=== PATIENT | male | born 1975 | race African-American/Black ===

== ENCOUNTER 2024-06-16 19:00 | Emergency (ER) | payer OTHER, SELFPAY ==
--- OUTSIDE RECORDS SUMMARY | 2024-06-16 19:08 | XMS_ITS | Clinical Summary ---
Author Organization [facility] [address] Address [address] [place] [address] Phone Care Team Providers Care Vp Cardiovascular Service Line Name Role Phone Kendra Grimaldo NP Primary Care Provider [phone] Allergies No known active allergies Medications ibuprofen (ADVIL,MOTRIN) 800 mg tablet TAKE ONE TABLET BY MOUTH THREE TIMES DAILY 90 0 01/01/20 16 Active Additional Information Patient not taking.Reported on 04/16/2024 emtricitabine-teno fovir disoproxil fumerate (TRUVADA) 200-300 mg per tablet Take 1 tablet by mouth daily Active DULoxetine DR (CYMBALTA) 60 mg capsule Take 1 capsule (60 mg total) by mouth daily 03/16/19 23 Active mirtazapine (REMERON) 30 mg tablet Take 1 tablet (30 mg total) by mouth nightly at bedtime. 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 Acute constipation 04/16/2024 Encounter for screening colonoscopy 04/28/2022 Overview (04/28/2022): Added automatically from request for surgery [id number] Alcohol withdrawal syndrome without complication 10/10/2017 Encounters Date Type Department Care Team Description 05/01/2024 Telephone [facility] Gastroenterology at [address] [place] [address] Lucinda Mccain 04/16/2024 8:15 AM BILLET DRILLER Office Visit [facility] Gastroenterology at [address], [place] [address] Ethan Wynne NP Proctocolitis (Primary Dx); Acute constipation; Tubulovillous adenoma 04/16/2024 Telephone [facility] Gastroenterology at [address], [place] [address] Radha Jose LPN 04/16/2024 Telephone [facility] Gastroenterology at [address] [address] Ethan Wynne NP 04/14/2024 6:12 AM BILLET DRILLER - 04/14/2024 11:25 AM BILLET DRILLER Emergency [facility] Emergency Department [address] [place] [address] Jonathan Heck MD Proctocolitis (Primary Dx) Discharge Disposition: Discharge to home or self care from Last 3 Months Surgical History Surgery Date Site/Laterality Comments COLONOSCOPY 05/24/2022 Social History Tobacco Use Types Packs/Day Years Used Date Smoking Tobacco: Former Cigarettes Q uit: 2018 Smokeless Tobacco: Never Alcohol Use Standard Drinks/Week Comments Yes 6 (1 standard drink = 0.6 oz pur e alcohol) 1/5 and 6 beers daily AUDIT-C Answer Date Recorded Q1: How often do you have a drink containing alc ohol? Never 04/16/2024 Average Number of Drinks Not on file 025 Frequency of Binge Drinking Not on file 05/2024 Personal Safety Answer Date Recorded Have you ever been in or are you currently in a harmful physical or emotional relationship or is someone making you feel afraid or unsafe? Denies 04/14/2024 Sex and Gender Information Value Date Recorded Sex Assigned at Not on file Legal Sex Male 7:40 PM BILLET DRILLER Gender Identity Not on file Sexual Orientation Not on file Obstetrics History Last Filed Vital Signs Vital Sign Reading Time Taken Comments Blood Pressure 134/81 04/16/2024 10:05 AM BILLET DRILLER Pulse 89 04/16/2024 10:05 AM BILLET DRILLER Temperature 36.1 C (97 F) 04/14/2024 6:20 AM BILLET DRILLER Respiratory Rate 16 04/14/2024 11:1 5 AM BILLET DRILLER Oxygen Saturation 96% 04/16/2024 10: 05 AM BILLET DRILLER Inhaled Oxygen Concentration - - Weight 68.8 kg (151 lb 11.2 oz) 025 10:05 AM BILLET DRILLER Height 177.8 cm (5' 10 ) 04/16/2024 10: 05 AM BILLET DRILLER Body Mass Index 21.77 04/16/2024 10:05 AM BILLET DRILLER Plan of Treatment Upcoming Encounters Date Type Department Care Team (Late st Contact Info) Description 07/02/2024 12:30 PM CDT Hospital Encounter [address] [address] Chino Avila MD [address] [place] [address] DR LAZARO [address] [place] [address] 07/02/2024 12:30 PM CDT - 07/02/2024 1:00 PM CDT Surgery [address] [address] Chino Avila MD [address] [place] [address] DR LAZARO [address] [place] [address] COLONOSCOPY Scheduled Procedures Name Priority Associated Diagnoses Date/Ti me COLONOSCOPY Proctocolitis 07/02/2024 12:30 PM CDT Health Maintenance Due Date Last Done Comments Depression Screening 1975 Hepatitis C Screening 1975 Prostate Cancer Screening-PSA 1975 DTaP/Tdap/Td Vaccine (1 - Tdap) 07/07/1986 Hepatitis B Screening 07/07/1993 Regular Well Visit/Exam 18-64 07/07/1993 Influenza Vaccine (#1) 2023 3, 11/05/2020, 11/05/2020 Colon Cancer Screening-Colonoscopy 05/24/2032 05/24/2022 Pneumococcal vaccine <65 Aged Out No longer eligible based on patient's age to complete this topic Procedures Procedure Name Priority Date/Time Associated Diagnosis Comments URINALYSIS, MICROSCOPIC ONLY STAT 04/14/2024 10:07 AM BILLET DRILLER URINALYSIS AND REFLEX TO MICROSCOPIC AND CULTURE STAT 04/14/2024 10:[address] ABDOMEN PELVIS W CONTRAST ED 04/14/2024 9:15 AM BILLET DRILLER EGFR STAT 04/14/2024 6:52 AM BILLET DRILLER MANUAL DIFFERENTIAL STAT 04/14/2024 6 :52 AM BILLET DRILLER CRP (ACUTE PHASE) Add-On 04/14/2024 6:5 2 AM BILLET DRILLER LIPASE STAT 04/14/2024 6:52 AM BILLET DRILLER SEPSIS LACTATE WITH REFLEX STAT 04/14/2024 6:52 AM BILLET DRILLER CBC WITH AUTO DIFFERENTIAL STAT 04/14/2024 6:52 AM BILLET DRILLER COMPREHENSIVE METABOLIC PANEL STAT 04/14/2024 6:52 AM BILLET DRILLER COLONOSCOPY 05/24/2022 9:16 AM CDT from Last 3 Months or Most Recently Relevant to Health Maintenance Results * (ABNORMAL) Urinalysis reflex to microscopic and culture Urine (04/14/2024 10:07 AM BILLET DRILLER) Color, ur Yellow Yellow Clarity, ur Clear Clear [facility] ([place]) Specific gravity, ur 1.010 1.003 - 1.030 [facility] ([place]) Comment:Confirmed by manual dipstick. pH, urine 7.0 [facility] ([place]) Comment: Interpretive Data U rine pH is affected by diet, medications, systemic acid-base disturbances, and renal tubular function. pH may affect urinary stone formation. For example, urine pH below 6.0 may help reduce the tendency for calcium phosphate stones and pH greater than 6.0 may reduce the tendency for uric acid stone formation. Source: [employer] Current Interpretive Data was last revised on 2017 Protein, ur ql 1+(A) Negative [facility] ([place]) Glucose, ur ql Negative Negative [facility] ([place]) Ketones, ur Negative Negative [facility] ([place]) Bilirubin, ur Negative Negative [facility] ([place]) Blood, ur Negative Negative [facility] ([place]) Urobilinogen, ur <2.0 <2.0 mg/dL [facility] ([place]) Nitrite, ur Negative Negative [facility] ([place]) Leukocyte esterase, ur Negative Negative [facility] ([place]) UA reflex comment Reflex to microscopic UA will be performed. [facility] ([place]) Urine 04/14/2024 10:0 7 AM BILLET DRILLER 04/14/2024 10:11 AM BILLET DRILLER us Jonathan Heck MD LAB MICROBIOLOGY - GENERAL O RDERABLES Final Result Performing Organization Address [facility] Co de Phone Number [facility] ([place]) [address] [facility] [address] [employer] [place] [address] * Urinalysis, microscopic only (04/14/2024 10:07 AM BILLET DRILLER) WBC, ur 0-5 0 - 5 /HPF RBC, ur 0-2 0 - 2 /HPF [facility] ([place]) Epithelial cells, squamous, ur 1-5 0 - 5 /HPF [facility] ([place]) Culture Reflex Comment Reflex conditions for urine culture (WBC >10) not met. [facility] ([place]) Urine 04/14/2024 10:0 7 AM BILLET DRILLER 04/14/2024 10:11 AM BILLET DRILLER Jonathan Heck MD LAB URINE ORDERABLES Final R esult Performing Organization Address City/[facility] Co de Phone Number [facility] ([place]) [address] [facility] [address] [employer] [place] [address] * CT Abdomen Pelvis W Contrast (04/14/2024 9:15 AM BILLET DRILLER) Anatomical Region Laterality Modality Body N/A Computed Tomogra phy 04/14/2024 9:44 AM BILLET DRILLER Narrative 04/14/2024 10:01 AM BILLET DRILLER EXAM DESCRIPTION: CT ABDOMEN PELVIS W CONTRAST REASON FOR STUDY: Abdominal pain, acute, nonlocalized Patient arrives for evaluation of constipation. Patient states that he has not had a regular bowel movement since last Monday. He has not tried any otc medications. Patient also reports nausea. TECHNIQUE: CT scan of the abdomen and pelvis performed with intravenous and without oral contrast using helical scanning technique with dynamic intravenous contrast injection. Reconstructed coronal and sagittal MPR images reviewed. All images stored on PACS. Automated exposure control was used as a dose optimization technique for this examination. CONTRAST TYPE/DOSE: 75mL of IOVERSOL 350 MG IODINE/ML INTRAVENOUS SYRINGE injected via intravenous COMPARISON: CT abdomen and pelvis 09/29/2021 FINDINGS: LOWER CHEST: No acute findings. LIVER: Normal. GALLBLADDER: Normal. SPLEEN: Normal. PANCREAS: Normal. ADRENALS: Normal. KIDNEYS/URINARY TRACT: Normal. GI: No bowel obstruction. Normal appendix. Large amount of right and transverse colonic stool. There is sigmoid colonic and rectal wall thickening with prominent perirectal vasculature and small perirectal lymph nodes. PERITONEUM: No free intraperitoneal air or free fluid. REPRODUCTIVE: Normal. VASCULATURE: No abdominal aortic aneurysm. MUSCULOSKELETAL: Old L1 and L2 compression fractures. Grade 1 anterolisthesis of L4 on L5. Disc space narrowing at L5-S1. OTHER: No other abnormality. IMPRESSION: Evidence of proctocolitis. The bowel wall would be better evaluated colonoscopically after acute symptoms have resolved. Large amount of right and transverse colonic stool in keeping with the history of constipation. THIS IS AN ELECTRONICALLY VERIFIED FINAL REPORT 04/14/2024 10:01 AM - Electronically signed by Abdiel Caballero M.D. JR: Report ID: [id number] Reading Location: [id number] Procedure Note Abdiel Caballero MD - 04/14/2024 EXAM DESCRIPTION: CT ABDOMEN PELVIS W CONTRAST REASON FOR STUDY: Abdominal pain, acute, nonlocalized Patient arrives for evaluation of constipation. Patient states that he hasnot had a regular bowel movement since last Monday. He has not tried any otc medications. Patient also reports nausea. TECHNIQUE: CT scan of the abdomen and pelvis performed with intravenousand without oral contrast using helical scanning technique with dynamic intravenous contrast injection. Reconstructed coronal and sagittal MPRimages reviewed. All images stored on PACS. Automated exposure control was used as a dose optimization technique forthis examination. CONTRAST TYPE/DOSE: 75mL of IOVERSOL 350 MG IODINE/ML INTRAVENOUSSYRINGE injected via intravenous COMPARISON: CT abdomen and pelvis 09/29/2021 FINDINGS: LOWER CHEST: No acute findings. LIVER: Normal. GALLBLADDER: Normal. SPLEEN: Normal. PANCREAS: Normal. ADRENALS: Normal. KIDNEYS/URINARY TRACT: Normal. GI: No bowel obstruction. Normal appendix. Large amount of right and transverse colonic stool. There is sigmoid colonic and rectal wallthickening with prominent perirectal vasculature and small perirectal lymph nodes. PERITONEUM: No free intraperitoneal air or free fluid. REPRODUCTIVE: Normal. VASCULATURE: No abdominal aortic aneurysm. MUSCULOSKELETAL: Old L1 and L2 compression fractures. Grade 1 anterolisthesis of L4 on L5. Disc space narrowing at L5-S1. OTHER: No other abnormality. IMPRESSION: Evidence of proctocolitis. The bowel wall would be better evaluated colonoscopically after acute symptoms have resolved. Large amount of right and transverse colonic stool in keeping with the history of constipation. THIS IS AN ELECTRONICALLY VERIFIED FINAL REPORT 04/14/2024 10:01 AM - Electronically signed by Abdiel Caballero M.D. JR: Report ID: [id number] Reading Location: [id number] Jonathan Heck MD IMG CT PROCEDURES Final Resu lt * Sepsis Lactate w/ Reflex (04/14/2024 6:52 AM BILLET DRILLER) Sepsis Lactate 1.2 0.7 - 2.0 mmol/L Blood 04/14/2024 6:52 AM BILLET DRILLER 04/14/2024 6:54 AM BILLET DRILLER Jonathan Heck MD LAB BLOOD ORDERABLES Final R esult Performing Organization Address City/[facility]/ZIP Co de Phone Number [facility] ([place]) 1 [facility] [employer] [place] [address] * eGFR (04/14/2024 6:52 AM BILLET DRILLER) eGFR >90 >=60 mL/min/1. 73 m2 Comment: Interpretive Data Reference Interval Normal >/= 90 mL/min/1.73m2 Mildly decreased* 60 - 89 mL/min/1.73m2 Mildly to moderately decreased 45 - 59 mL/min/1.73m2 Moderately to severely decreased 30 - 44 mL/min/1.73m2 Severely decreased 15 - 29 mL/min/1.73m2 Kidney Failure < 15 mL/min/1.73m2 *Relative to young adult level Estimated glomerular filtration rate is determined by the 2020 CKD-EPI equation recommended by the National Kidney Foundation (A Unifying Approach to GFR Estimation: Recommendations of the NKF-ASK Task Force on Reassessing the Inclusion of Race in Diagnosing Kidney Disease, JASN 2020). The CKD-EPI equation should not be used for patients with unstable renal function and has not been validated in children and those over 70. Current interpretive data was last reviewed 2020. Blood 04/14/2024 6:52 AM BILLET DRILLER 04/14/2024 6:54 AM BILLET DRILLER Jonathan Heck MD LAB BLOOD ORDERABLES Final R esult Performing Organization Address City/[facility]/ZIP Co de Phone Number [facility] ([place]) 1 [facility] [employer] [place] [address] * (ABNORMAL) CBC with auto differential (04/14/2024 6:52 AM BILLET DRILLER) Pathologist [facility] WBC 6.7 3.8 - 9.9 K/cumm Hgb 12.1(L) 13.0 - 17.5 g/dL [facility] ([place]) Hct 37.0(L) 38.9 - 50.3 % [facility] ([place]) Plt 286 150 - 400 K/cumm [facility] ([place]) MPV 8.5(L) 9.1 - 12.3 fL [facility] ([place]) RBC 5.06 4.30 - 5.80 M/cumm [facility] ([place]) MCV 73.1(L) 81.3 - 96.4 fL [facility] ([place]) MCH 23.9(L) 27.1 - 33.3 pg [facility] ([place]) MCHC 32.7 32.3 - 35.7 g/dL [facility] ([place]) RDW CV 13.4 11.1 - 14.9 % [facility] ([place]) RDW SD 34.8(L) 35.7 - 48.1 fL [facility] ([place]) NRBC abs 0.00 0.00 - 0.01 K/cumm [facility] ([place]) Blood 04/14/2024 6:52 AM BILLET DRILLER 04/14/2024 6:54 AM BILLET DRILLER Jonathan Heck MD LAB BLOOD ORDERABLES Final R esult [facility] ([place]) 1 [facility] Department of Laboratories [place] [id number] * (ABNORMAL) Manual Differential (04/14/2024 6:52 AM BILLET DRILLER) Differential Manual Cells Counted 100 [facility] ([place]) Neutrophil abs 3.4 1.5 - 6.5 K/cumm [facility] ([place]) Lymphocyte abs 1.8 0.8 - 3.3 K/cumm [facility] ([place]) Monocyte abs 0.9(H) 0.2 - 0.8 K/cumm [facility] ([place]) Eosinophil abs 0.3 0.0 - 0.5 K/cumm [facility] ([place]) Basophil abs 0.2(H) 0.0 - 0.1 K/cumm [facility] ([place]) Neutrophil pct 50.0 % [facility] ([place]) Comment: Interpretive Data Percent cell count reference ranges are not reported, since discordance with absolute values may lead to misinterpretation of CBC data. Current Interpretive Data was last revised on 2017. Lymphocyte pct 12.0 % [facility] ([place]) Comment: Interpretive Data Percent cell count reference ranges are not reported, since discordance with absolute values may lead to misinterpretation of CBC data. Current Interpretive Data was last revised on 2017. Monocyte pct 14.0 % [facility] ([place]) Comment: Interpretive Data Percent cell count reference ranges are not reported, since discordance with absolute values may lead to misinterpretation of CBC data. Current Interpretive Data was last revised on 2017. Eosinophil pct 5.0 % [facility] ([place]) Comment: Interpretive Data Percent cell count reference ranges are not reported, since discordance with absolute values may lead to misinterpretation of CBC data. Current Interpretive Data was last revised on 2017. Basophil pct 3.0 % [facility] ([place]) Comment: Interpretive Data Percent cell count reference ranges are not reported, since discordance with absolute values may lead to misinterpretation of CBC data. Current Interpretive Data was last revised on 2017. Band Neutrophil pct 1.0 0.0 - 5.0 % [facility] ([place]) Variant lymph pct 15.0(H) 0.0 - 0.0 % [facility] ([place]) RBC morphology Consistent with RBC Indicies [facility] ([place]) Hypochromasia 8-15/HPF(A) [facility] ([place]) Microcytes 3-7/HPF(A) [facility] ([place]) Target cells 8-15/HPF(A) [facility] ([place]) Platelet estimate Adequate CE [facility] ([place]) Blood 04/14/2024 6:52 AM BILLET DRILLER 04/14/2024 6:54 AM BILLET DRILLER us Jonathan Heck MD LAB BLOOD ORDERABLES Final R esult [facility] ([place]) 1 [facility] Department [place] [address] * (ABNORMAL) CRP (acute phase) (04/14/2024 6:52 AM BILLET DRILLER) CRP 113.9(H) <=10.0 mg/L Blood 04/14/2024 6:52 AM BILLET DRILLER 04/14/2024 6:54 AM BILLET DRILLER Jonathan Heck MD LAB BLOOD ORDERABLES Final R esult Performing Organization Address City/[facility] Co de Phone Number N[facility] ([place]) 1 [place] [address] * Lipase (04/14/2024 6:52 AM BILLET DRILLER) Lipase 51 10 - 99 Units/L Blood 04/14/2024 6:52 AM BILLET DRILLER 04/14/2024 6:54 AM BILLET DRILLER Jonathan Heck MD LAB BLOOD ORDERABLES Final R esult Performing Organization Address [facility] de Phone Number [facility] ([place]) 1 [facility] [employer] [place] [address] * (ABNORMAL) Comprehensive metabolic panel (04/14/2024 6:52 AM BILLET DRILLER) Sodium 135 135 - 145 mmol/L Potassium, pl 3.4 3.3 - 4.9 mmol/L [facility] ([place]) Chloride 98 97 - 110 mmol/L [facility]) CO2 28 22 - 32 mmol/L [facility] ([place]) Anion gap 9 2 - 15 mmol/L [facility] ([place] BUN 8 6 - 25 mg/dL [facility] ([place]) Creatinine 0.96 0.80 - 1.30 mg/dL [facility] ([place]) Glucose 97 70 - 199 mg/dL [facility] ([place]) Comment: Interpretive Data Fasting glucose >/= 126 mg/dl is diagnostic for diabetes. Fasting is defined as no caloric intake for at least 8 hours. Fasting glucose between 100 mg/dl to 125 mg/dl is diagnostic of prediabetes. In a patient with classic symptoms of hyperglycemia or hyperglycemic crisis, a random glucose >/= 200 mg/dl is diagnostic for diabetes. In the absence of unequivocal hyperglycemia, results should be confirmed by repeat testing. The classification and Diagnosis of Diabetes Diabetes Care 2021; 46: S19-S40. Current interpretive data was last revised 2022. Calcium 8.9 8.5 - 10.3 mg/dL [facility] ([place]) Bilirubin, total 1.0 0.1 - 1.2 mg/dL [facility] ([place]) Protein, pl 6.7 6.5 - 8.5 g/dL [facility] ([place]) Albumin 3.2(L) 3.5 - 5.0 g/dL [facility] ([place]) Alk phos 54 40 - 130 Units/L [facility] ([place]) ALT 16 7 - 55 Units/L [facility] ([place]) AST 9(L) 10 - 50 Units/L [facility] ([place]) Blood 04/14/2024 6:52 AM BILLET DRILLER 04/14/2024 6:54 AM BILLET DRILLER Jonathan Heck MD LAB BLOOD ORDERABLES Final R esult [facility] ([place]) 1 [facility] [place] [address] * COLONOSCOPY (05/24/2022 9:16 AM CDT) Anatomical Region Laterality Modality Other Narrative Procedure Note Ethan Britt MD - 05/24/2022 9:16 AM CDT [facility] Patient Name: Fausto Smith Procedure Date: 05/24/2022 9:16 AM Date of : 1975 Admit Type: Outpatient Age: 46 Gender: Male Attending MD: Ethan Britt M.D. Room: [facility] ENDOSCOPY ROOM 2 Note Status: Finalized Patient Profile: Refer to note in patient chart for documentation of history and physical. Procedure: Colonoscopy Indications: Screening for colorectal malignant neoplasm, Thisis the patient's first colonoscopy Referring MD: Mariaelena Arriaga Providers: Ethan Britt M.D. Impression: - Hemorrhoids found on perianal exam. - One 3 mm polyp in the ascending colon, removedwith a jumbo cold forceps. Resected and retrieved. - The examination was otherwise normal. Recommendation: - Discharge patient to home. - Resume previous diet. - Continue present medications. - Await pathology results. - Repeat colonoscopy in 10 years formerly [facility]. - Return to primary care physician as previously scheduled. Medicines: Propofol per Anesthesia Complications: No immediate complications. Estimated Blood Loss: Estimated blood loss: none. Procedure: Pre-Anesthesia Assessment: - This assessment was completed [Time ofAssessment] prior to the administration of sedation. The benefits, risks and alternatives of theprocedure and sedation were discussed and informed consentwas obtained. All questions were answered. Please referto the signed informed consent document in the medical record. The bowel preparation used was Miralax and bisacodyl tablets via split dose instruction. The scope was passed under direct vision. TheColonoscope [id number] was introduced through the anus and advanced to the the cecum, identified by appendiceal orifice and ileocecal valve. The colonoscopy was performed without difficulty. The patient tolerated the procedure well. The qualityof the bowel preparation was excellent. The ileocecal valve, appendiceal orifice, and rectum were photographed. Findings: Hemorrhoids were found on perianal exam. A 3 mm polyp was found in the ascending colon. The polyp was sessile. The polyp was removed with a jumbo cold forceps. Resection andretrieval were complete. Verification of patient identification for thespecimen was done by the physician and nurse using the patient's name andbirth date. Estimated blood loss was minimal. The exam was otherwise without abnormality. Electronically signed by Ethan Britt M.D. Ethan Britt M.D. 05/24/2022 11:55:32 AM Number of Addenda: 0 Note Initiated On: 05/24/2022 9:16 AM Procedure Code(s): --- Professional --- 25830, Colonoscopy, flexible; with biopsy, single or multiple --- Technical --- 19956, Colonoscopy, flexible; with biopsy, single or multiple Diagnosis Code(s): --- Professional --- D12.2, Benign neoplasm of ascending colon K64.9, Unspecified hemorrhoids Z12.11, Encounter for screening for malignant neoplasm of colon --- Technical --- D12.2, Benign neoplasm of ascending colon K64.9, Unspecified hemorrhoids Z12.11, Encounter for screening for malignant neoplasm of colon CPT copyright 2020 [employer]. All rights reserved. The codes documented in this report are preliminary and upon educational assistant reviewmay be revised to meet current compliance requirements. Recognized by the [employer] for promoting quality in endoscopy Ethan Britt MD ENDOSCOPY PROCEDURES Final Re sult from Last 3 Months or Most Recently Relevant to Health Maintenance [place] [address] Advance Directives For more information, please contact: [phone] * Full Code (Latest Code Status on File) Date Activated Date Inactivated Comments 05/24/2022 9:54 AM 05/24/2022 5:11 PM * Full Code Date Activated Date Inactivated Comments 10/10/2017 10:38 AM 10/13/2017 11:26 AM Care Teams Vp Cardiovascular Service Line Relationship Specialty Start Date End Date Kendra Grimaldo NP [address] [address] PCP - General Family Medicine 05/24/22
--- OUTSIDE RECORDS SUMMARY | 2024-06-16 19:08 | XMS_ITS | Continuity of Care Document ---
Author Organization [facility] Address [address] [place] [address] Phone Care Team Providers Care Cloth Hand Name Role Phone Lovely Nayak Unavailable Unavailable Procedures Procedure Date NEW EMPLOYEE PHYSICAL Advance Directives Directive Yes / No Effective Date File Name No Information Encounters Encounter Description Practice Location Reason(s) For Visit Diagnoses Date Provider Providers Copied on Encounter [facility], [address] [place] [address], [address], tel:[phone] *[facility] Urgent Care No Information Esther Murry. [address] [place], [address], [place]. tel:[phone] [facility], [address] [place] [address], [facility], tel:[phone] *[facility] Urgent Care Employee physical (chief complaint) Body mass index [BMI] 23.0-23.9, adultExaminat ion, physical, employee Vinay Salamanca. [address] [place], [address], . tel:[phone] Family History Family Member Type Diagnosis Age At Onset No Information Payers Payer name Insurance type Covered libertarian ID Authoriza tion(s) No Information Social History Type Description Quantity Date Captured Comments Alcohol Use Details Unknown Caffeine Use Details Unknown Tobacco Use Status No Information Smoking Status No Information Sex Male Chief Complaint And Reason For Visit No Information Reason For Referral Reason For Referral No Information Plan Of Treatment Date Type Action Status Goal Dietary management education , guidance, and counseling completed History Of Present Illness Encounter Date Complaint History Of Prese nt Illness Employee physical Pt is here for physical for [facility].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
--- OUTSIDE RECORDS SUMMARY | 2024-06-16 19:08 | XMS_ITS | Patient Health Record ---
Author Organization [facility] Address [address] [place] [address] Care Team Providers Care Conference Service Coordinator Name Role Phone MarnieEthan lama Primary Care Provider Allergies No Known Allergies Reason For Referral No Information Medications Medication SIG (Take, Route, Frequency, Duration) Notes Start Date End Date Status LORazepam 1 MG 1 tab as needed Orally every 8 hours for 10 days 06/24/2021 Active Emtricitabine-Tenofovir DF 200-300 MG TAKE 1 TABLET BY MOUTH EVERY DAY for 30 needs an appt Active Mirtazapine 30 MG TAKE 1 TABLET BY MOUTH AT BEDTIME for 30 needs an appt Active Immunizations Vaccine Route Administration Date Status Comme nts Flulaval IM Intramuscular 11/05/2020 Administered Social History Tobacco Use: Social History Observation Description Date Details (start date - stop date) Current Smoker NA - NA Sex Assigned At : Social History Observation Description Sex Assigned At Male Tobacco Use/Smoking Question Answer Notes Smoking Status: current smoker Are you interested in quitting? Thinking about q uitting How many cigarettes a day do you smoke? 5 or les s How soon after you wake up d o you smoke your first cigarette? after 60 minutes How often do you smoke cigarettes? some days, bu t not every day Alcohol Screen (Audit-C) Question Answer Notes Did you have a drink contain ing alcohol in the past year? Yes How often did you have 6 or more drinks on one occasion in the past year? Less than monthly (1 point) How many drinks did you have on a typical day when you were drinking in the past year? 1 or 2 drinks (0 point) How often did you have a dri nk containing alcohol in the past year? 2 to 4 times a month (2 points) Tobacco use other than smoking: Question Answer Notes Are you an other tobacco user? 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 Problems Problem Type SNOMED Code ICD Code Onset Dates Problem Status W/U Status Risk Notes Problem Benign non-nodular prostatic hyperplasia with lower urinary tract symptoms (N40.1) Active confirmed Problem Anxiety (29195062) Anxiety (F41.9) Active confirmed Plan Of Treatment Pending Test Test Name Order Date Phosphorus, Serum 03/08/2021 CBC With Differential/Platelet HIV 1/2 Antibody Panel [id number] 03/08/2021 Hepatic Function Panel (7) 03/08/2021 Basic Metabolic Panel (8) 03/08/2021 Insurance Providers Payer Name Payer Address Payer Phone Subscriber Number Group Number Insured Name Patient Relationship to Insured Coverage Start Date Coverage End Date [facility] [address] [address] [place], [place] [id number] Fausto Smith Self - patient is the insured Medical (General) History Medical History History ICD Code Colonoscopy: No DEXA (Bone Density) Scan: No Mammogram: No Pap: No AIDS/HIV: No alcohol abuse: No acid reflux: No allergies, food: No allergies, seasonal: No anemia: No arthritis: No asthma: No attention deficit disorder: No anxiety: No bipolar disorder: No bladder infections, chronic: No : No chronic diarrhea: No cough, chronic: No dementia: No depression: No deep vein thrombosis: No diabetes mellitus: No drug abuse: No eating disorder: No gout: No insomnia: No inflammatory bowel disease: No myocardial infarction: No neuropathy: No panic attacks: No osteoporosis: No pulmonary embolism: No rheumatoid arthritis: No seizures: No sleep apnea: No stroke: No white coat hypertension: No Other not mentioned: No
--- OUTSIDE RECORDS SUMMARY | 2024-06-16 19:08 | XMS_ITS | Encounter Summary ---
Author Organization [facility] Address [address] [place] [address] Phone Care Team Providers Care Correctional Agency Director Name Role Phone Re, Kendra Dykes APRN, ANDREW Primary Care Provider Linda BYRNE MD, Nelda Unavailable Encounter Details Date Type Department Care Team (Late st Contact Info) Description 04/04/2022 Lab Requisition [facility] [address] [place] [address] System, Referring Not In [place] Social History Tobacco Use Types Packs/Day Years Used Date Smoking Tobacco: Some Days Cigarettes 0.2 25 Smokeless Tobacco: Never Alcohol Use Standard Drinks/Week Comments Yes 36 (1 standard drink = 0.6 oz pu re alcohol) at least 12 pk/3 x/wk Sex and Gender Information Value Date Recorded Sex Assigned at Not on file Legal Sex Male 8:57 PM CDT Gender Identity Not on file Sexual Orientation Not on file COVID-19 Exposure Response Date Recorded In the last 10 days, have yo u been in contact with someone who was confirmed or suspected to have Coronavirus/COVID-19? No / Unsure 04/04/2022 1:16 PM BEAD FILLER documented as of this encounter Plan of Treatment Not on file documented as of this encounter Procedures Procedure Name Priority Date/Time Associated Diagnosis Comments QUANTIFERON-TB GOLD PLUS Routine 04/04/2022 2:38 PM BEAD FILLER MMRV PANEL Routine 04/04/2022 2:38 PM BEAD FILLER MUMPS IGG Routine 04/04/2022 2:38 PM BEAD FILLER HERPES ZOSTER (VARICELLA) IGG Routine 04/04/2022 2:38 PM BEAD FILLER RUBEOLA (MEASLES) IGG Routine 04/04/2022 2:38 PM BEAD FILLER RUBELLA IMMUNITY IGG Routine 04/04/2022 2:38 PM BEAD FILLER HEPATITIS B SURFACE ANTIBODY (HBSAB) Routine 04/04/2022 2:38 PM BEAD FILLER documented in this encounter Results * HERPES ZOSTER (VARICELLA) IGG (04/04/2022 2:38 PM BEAD FILLER) VARICELLA ZOSTER IGG 1.3 >=1.1 AI 04/04/2022 11:13 PM BEAD FILLER [facility] Blood Venipuncture / Unknown 04/04/2022 2:38 PM BEAD FILLER 04/04/2022 4:01 PM BEAD FILLER Narrative [facility] - 04/04/2022 11:13 PM BEAD FILLER <= 0.8 Negative. No detectable VZV IgG antibody. 0.9 - 1.0 Equivocal >=1.1 Positive Antibody testing was performed by multiplex flow immunoassay on the BioPlex platform. us Referring Not In System IMMUNOLOGY ORDERABLES Fi nal Result [facility] [address] [place] [address], * (ABNORMAL) RUBEOLA (MEASLES) IGG (04/04/2022 2:38 PM BEAD FILLER) MEASLES AB IGG 0.7(L) >=1.1 AI 04/04/2022 11:13 PM BEAD FILLER [facility] Blood Venipuncture / Unknown 04/04/2022 2:38 PM BEAD FILLER 04/04/2022 4:01 PM BEAD FILLER Narrative [facility] - 04/04/2022 11:13 PM BEAD FILLER <= 0.8 Negative. No detectable Measles IgG antibody. 0.9 - 1.0 Equivocal >=1.1 Positive Antibody testing was performed by multiplex flow immunoassay on the BioPlex platform. us Referring Not In System IMMUNOLOGY ORDERABLES Fi nal Result Performing Organization Address City/[facility]/ZIP Co de Phone Number [facility] [address] [place] [address], [place] * RUBELLA IMMUNITY IGG (04/04/2022 2:38 PM BEAD FILLER) RUBELLA IMMUNITY Immune Immune, Invalid 04/04/2022 11:13 PM BEAD FILLER [facility] Blood Venipuncture / Unknown 04/04/2022 2:38 PM BEAD FILLER 04/04/2022 4:01 PM BEAD FILLER Narrative [facility] - 04/04/2022 11:13 PM BEAD FILLER Antibody testing was performed by multiplex flow immunoassay on the BioPlex platform. us Referring Not In System CHEMISTRY ORDERABLES Fin al Result Performing Organization Address [facility]/ZIP Co de Phone Number [facility] [address] [place] [address], [place] * MUMPS IGG (04/04/2022 2:38 PM BEAD FILLER) Mumps Ab IgG 1.4 >=1.1 AI 04/04/2022 11:13 PM BEAD FILLER [facility] Blood Venipuncture / Unknown 04/04/2022 2:38 PM BEAD FILLER 04/04/2022 4:01 PM BEAD FILLER Narrative [facility] - 04/04/2022 11:13 PM BEAD FILLER <= 0.8 Negative. No detectable Mumps IgG antibody. 0.9 - 1.0 Equivocal >=1.1 Positive Antibody testing was performed by multiplex flow immunoassay on the BioPlex platform. us Referring Not In System IMMUNOLOGY ORDERABLES Fi nal Result Performing Organization Address City/[facility]/ZIP Co de Phone Number [facility] [address] [place] [address], [place] * HEPATITIS B SURFACE ANTIBODY (HBSAB) (04/04/2022 2:38 PM BEAD FILLER) HEPATITIS B SURFACE ANTIBODY <8.00 mIU/mL [facility] ARCH [id number] B 04/04/2022 11:16 PM BEAD FILLER [facility] Comment:Individual is consid ered not immune to HBV infection. Blood Venipuncture / Unknown 04/04/2022 2:38 PM BEAD FILLER 04/04/2022 4:05 PM BEAD FILLER us Referring Not In System CHEMISTRY ORDERABLES Fin al Result [facility] [address] [place] [address], [place] * QUANTIFERON-TB GOLD PLUS (04/04/2022 2:38 PM BEAD FILLER) NIL CONTROL 0.11 <8.01 IU/mL 04/06/2022 2:23 PM BEAD FILLER [facility] TB ANTIGEN 1 0.21 <0.35 IU/mL 04/06/2022 2:23 PM BEAD FILLER [facility] TB ANTIGEN 2 0.34 <0.35 IU/mL 04/06/2022 2:23 PM BEAD FILLER [facility] MITOGEN CONTROL >10.00 >0.49 IU/mL 04/06/19 2:23 PM BEAD FILLER [facility] INTEPRETATION TB NEGATIVE NEGATIVE, NEGATIVE (TB antigen response less than 25% of internal negative control value) 04/06/2022 2:23 PM BEAD FILLER [facility] Comment:No immune response t o Mycobacterium tuberculosis antigens was noted. M. tuberculosis infection unlikely. Blood Venipuncture / Unknown 04/04/2022 2:38 PM BEAD FILLER 04/04/2022 6:01 PM BEAD FILLER Narrative [facility] - 04/06/2022 2:23 PM BEAD FILLER A POSITIVE QUANTIFERON-TB GOLD PLUS RESULT SHOULD NOT BE THE SOLE OR DEFINITIVE BASIS FOR DETERMINING INFECTION WITH M.TUBERCULOSIS. Diagnosing or excluding tuberculosis disease, and assessing the probability of LTBI, requires a combination of epidemiological, historical, medical and diagnostic findings (e.g., acid fast bacilli (AFB) smear and culture, chest xray) that should be taken into account when interpreting QFT-Plus results. Furthermore, the magnitude of the measured gamma interferon level cannot be correlated to stage or degree of infection, level of immune responsiveness, or likelihood for progression to active disease. The Nil control adjusts for background (e.g., elevated levels of circulating gamma interferon or presence of heterophile antibodies). The Mitogen control serves as an internal positive control and verifies each specimen tested can produce a gamma interferon response. Low mitogen may occur with insufficient lymphocytes, reduced lymphocyte activity due to improper specimen handling, filling/mixing of the mitogen tube, or inability of the patient's lymphocytes to generate gamma interferon. Infection with other Mycobacteria, including M. kansasii, M. szulgai, and M. marinum, may cause false positive results. A negative QuantiFERON-TB Gold Plus result does not preclude the possibility of M. tuberculosis infection or tuberculosis disease: false negative results can be due to incorrect blood sample collection/ improper handling of the specimen, stage of infection (e.g., specimen obtained prior to the development of cellular immune response), co-morbid conditions which affect immune function, or other individual immunological factors. The minimum number of lymphocytes required for a reliable test has not been established and may also be variable. Diagnostic testing for Mycobacterium tuberculosis using Interferon Gamma Release Assays should follow applicable published guidelines, including when testing in populations such as children, women, and HIV-infected or otherwise immunocompromised individuals. https://www.cdc.gov/tb/publications/guidelines/testing.htm us Referring Not In System IMMUNOLOGY ORDERABLES Fi nal Result [facility] [address] [place] [address], documented in this encounter Visit Diagnoses Not on filedocumented in this encounter Care Teams Correctional Agency Director Relationship Specialty Start Date End Date Kendra Grimaldo APRN, CNP [address] [place] [address] PCP - General Advanced Practice Nurse 10/21/21 Nelda Mckeon III, MD [address] [place] [address] Consulting Physician Urology 11/04/21 documented as of this encounter
--- OUTSIDE RECORDS SUMMARY | 2024-06-16 19:08 | XMS_ITS | Referral Summary ---
Author Organization [facility] [address] Address [address] [place] [address] Phone Care Team Providers Care Job Lithographer Name Role Phone Kendra Grimaldo NP Primary Care Provider [phone] Encounters Date Type Department Care Team Description 05/01/2024 Telephone [facility] Gastroenterology at [address], [place] [address] Lucinda Mccain 04/16/2024 Telephone [facility] Gastroenterology at [address] [place] [address] Radha Jose LPN 04/16/2024 Telephone [facility] Medical [facility] Gastroenterology at [address] [place] [address] Ethan Wynne NP 04/16/2024 8:15 AM PULP DRIER Office Visit [facility] Gastroenterology at [address], [place] [address] Ethan Wynne NP Proctocolitis (Primary Dx); Acute constipation; Tubulovillous adenoma 04/14/2024 6:12 AM PULP DRIER - 04/14/2024 11:25 AM PULP DRIER Emergency [facility] Emergency Department [address] [place] [address] Jonathan Heck MD Proctocolitis (Primary Dx) Discharge Disposition: Discharge to home or self care from Last 3 Months Allergies No known active allergies Medications ibuprofen [...] (04/28/2022): Added automatically from request for surgery [id number] Alcohol withdrawal syndrome without complication 10/10/2017 Social History Tobacco Use Types Packs/Day Years [...] on file Legal Sex Male 7:40 PM PULP DRIER Gender Identity Not on file Sexual Orientation Not on file Last Filed Vital Signs Vital Sign Reading Time Taken Comments Blood Pressure 134/81 04/16/2024 10:05 AM PULP DRIER Pulse 89 04/16/2024 10:05 AM PULP DRIER Temperature 36.1 C (97 F) 04/14/2024 6:20 AM PULP DRIER Respiratory Rate 16 04/14/2024 11:1 5 AM PULP DRIER Oxygen Saturation 96% 04/16/2024 10: 05 AM PULP DRIER Inhaled Oxygen Concentration - - Weight 68.8 kg (151 lb 11.2 oz) 025 10:05 AM PULP DRIER Height 177.8 cm (5' 10 ) 04/16/2024 10: 05 AM PULP DRIER Body Mass Index 21.77 04/16/2024 10:05 AM PULP DRIER Plan of Treatment Upcoming Encounters Date Type Department Care Team (Late st Contact Info) Description 07/02/2024 12:30 PM CDT Hospital Encounter [address] [address] Chino Avila MD [address] [facility] [address] [place] [address] [place] [address] 07/02/2024 12:30 PM CDT - 07/02/2024 1:00 PM CDT Surgery [address] [address] Chino Avila MD [address] [facility] [address] [place] [address] [place] [id number] COLONOSCOPY Scheduled Procedures Name Priority Associated Diagnoses Date/Ti me COLONOSCOPY Proctocolitis 07/02/2024 12:30 PM CDT Procedures Procedure Name Priority Date/Time Associated Diagnosis Comments URINALYSIS, MICROSCOPIC ONLY STAT 04/14/2024 10:07 AM PULP DRIER URINALYSIS AND REFLEX TO MICROSCOPIC AND CULTURE STAT 04/14/2024 10:[address] ABDOMEN PELVIS W CONTRAST ED 04/14/2024 9:15 AM PULP DRIER EGFR STAT 04/14/2024 6:52 AM PULP DRIER MANUAL DIFFERENTIAL STAT 04/14/2024 6 :52 AM PULP DRIER CRP (ACUTE PHASE) Add-On 04/14/2024 6:5 2 AM PULP DRIER LIPASE STAT 04/14/2024 6:52 AM PULP DRIER SEPSIS LACTATE WITH REFLEX STAT 04/14/2024 6:52 AM PULP DRIER CBC WITH AUTO DIFFERENTIAL STAT 04/14/2024 6:52 AM PULP DRIER COMPREHENSIVE METABOLIC PANEL STAT 04/14/2024 6:52 AM PULP DRIER COLONOSCOPY 05/24/2022 9:16 AM CDT from Last 3 Months or Most Recently Relevant to Health Maintenance Results * (ABNORMAL) Urinalysis reflex to microscopic and culture Urine (04/14/2024 10:07 AM PULP DRIER) Color, ur Yellow Yellow Clarity, ur Clear Clear [facility] (AZUL) Specific gravity, ur 1.010 1.003 - 1.030 [facility] ([facility]) Comment:Confirmed by manual dipstick. pH, urine 7.0 [facility] ([facility]) Comment: Interpretive Data U rine pH is affected by diet, medications, systemic acid-base disturbances, and renal tubular function. pH may affect urinary stone formation. For example, urine pH below 6.0 may help reduce the tendency for calcium phosphate stones and pH greater than 6.0 may reduce the tendency for uric acid stone formation. Source: [facility] airpim Current Interpretive Data was last revised on [...] Reflex to microscopic UA will be performed. [facility] (AZUL) Urine 04/14/2024 10:0 7 AM PULP DRIER 04/14/2024 10:11 AM PULP DRIER Jonathan Heck MD LAB MICROBIOLOGY - GENERAL O RDERABLES Final Result Performing Organization Address [facility] Co de Phone Number [facility] (AZUL) 1 [facility] [place] [address] * Urinalysis, microscopic only (04/14/2024 10:07 AM PULP DRIER) WBC, ur 0-5 0 - 5 /HPF RBC, ur 0-2 0 - 2 /HPF [facility] (MCRAE) Epithelial cells, squamous, ur 1-5 0 - 5 /HPF [facility] (MCRAE) Culture Reflex Comment Reflex conditions for urine culture (WBC >10) not met. [facility] (MCRAE) Urine 04/14/2024 10:0 7 AM PULP DRIER 04/14/2024 10:11 AM PULP DRIER Jonathan Heck MD LAB URINE ORDERABLES Final R esult Performing Organization Address [facility] Co de Phone Number [facility] (MCRAE) 1 [facility] [place] [address] * CT Abdomen Pelvis W Contrast (04/14/2024 9:15 AM PULP DRIER) Anatomical Region Laterality Modality Body N/A Computed Tomogra phy 04/14/2024 9:4 4 AM PULP DRIER Narrative 04/14/2024 10:01 AM PULP DRIER EXAM DESCRIPTION: CT ABDOMEN PELVIS W CONTRAST [...] by Abdiel Caballero M.D. JR: Report ID: [id number] Reading Location: [id number] Procedure Note Abdiel Caballero MD - 04/14/2024 [...] by Abdiel Caballero M.D. JR: Report ID: [id number] Reading Location: [place] [address] Jonathan Heck MD IMG CT PROCEDURES Final Resu lt * Sepsis Lactate w/ Reflex (04/14/2024 6:52 AM PULP DRIER) Pathologist [facility] Sepsis Lactate 1.2 0.7 - 2.0 mmol/L Blood 04/14/2024 6:52 AM PULP DRIER 04/14/2024 6:54 AM PULP DRIER Jonathan Heck MD LAB BLOOD ORDERABLES Final R esult [facility] MCRAE) 6 [facility] Department [place] [address] * eGFR (04/14/2024 6:52 AM PULP DRIER) eGFR >90 >=60 mL/min/1. 73 m2 Comment: [...] last reviewed 2020. Blood 04/14/2024 6:52 AM PULP DRIER 04/14/2024 6:54 AM PULP DRIER Jonathan Heck MD LAB BLOOD ORDERABLES Final R esult [facility] (AZUL) 1 [facility] Department [place] [address] * (ABNORMAL) CBC with auto differential (04/14/2024 6:52 AM PULP DRIER) WBC 6.7 3.8 - 9.9 K/cumm Hgb 12.1(L) 13.0 - 17.5 g/dL [facility] (AZUL) Hct 37.0(L) 38.9 - 50.3 % [facility] (AZUL) Plt 286 150 - 400 [...] [facility] (AZUL) Blood 04/14/2024 6:52 AM PULP DRIER 04/14/2024 6:54 AM PULP DRIER Jonathan Heck MD LAB BLOOD ORDERABLES Final R esult [facility] (AZUL) 1 [facility] Department [place] [address] * (ABNORMAL) Manual Differential (04/14/2024 6:52 AM PULP DRIER) Differential Manual Cells Counted 100 [facility] [...] [facility] (AZUL) Blood 04/14/2024 6:52 AM PULP DRIER 04/14/2024 6:54 AM PULP DRIER Jonathan Heck MD LAB BLOOD ORDERABLES Final R esult [facility] (MCRAE) 1 [facility] [place] [address] * (ABNORMAL) CRP (acute phase) (04/14/2024 6:52 AM PULP DRIER) CRP 113.9(H) <=10.0 mg/L Blood 04/14/2024 6:52 AM PULP DRIER 04/14/2024 6:54 AM PULP DRIER Jonathan Heck MD LAB BLOOD ORDERABLES Final R esult [facility] (MCRAE) 1 [facility] [place] [address] * Lipase (04/14/2024 6:52 AM PULP DRIER) Lipase 51 10 - 99 Units/L Blood 04/14/2024 6:52 AM PULP DRIER 04/14/2024 6:54 AM PULP DRIER Jonathan Heck MD LAB BLOOD ORDERABLES Final R esult [facility] (AZUL) 1 [facility] Department [place] [address] * (ABNORMAL) Comprehensive metabolic panel (04/14/2024 6:52 AM PULP DRIER) Sodium 135 135 - 145 mmol/L Potassium, pl 3.4 3.3 - 4.9 mmol/L [facility] ([facility]) Chloride 98 97 - 110 mmol/L [facility] ([facility]) CO2 28 22 - 32 mmol/L [facility] ([facility]) Anion gap 9 2 - 15 mmol/L [facility] (AZUL) BUN 8 6 - 25 mg/dL [facility] ([facility]UL) Creatinine 0.96 0.80 - 1.30 mg/dL [facility] (AZUL) Glucose 97 70 - 199 mg/dL [facility] (AZUL) Comment: Interpretive Data Fasting glucose [...] classification and Diagnosis of Diabetes Diabetes Care 202; 46: S19-S40. Current interpretive data was last [...] (AZUL) AST 9(L) 10 - 50 Units/L [facility] (AZUL) Blood 04/14/2024 6:52 AM PULP DRIER 04/14/2024 6:54 AM PULP DRIER Jonathan Heck MD LAB BLOOD ORDERABLES Final R esult [facility] (MCRAE) 1 [facility] Department [place] [address] * COLONOSCOPY (05/24/2022 9:16 AM CDT) Anatomical Region Laterality Modality Other Narrative Procedure Note Ethan Britt MD - 05/24/2022 9:16 AM CDT [facility] Patient Name: Fausto Smith Procedure Date: 05/24/2022 9:16 AM Date of : 1975 Admit Type: Outpatient Age: 46 Gender: Male Attending MD: Ethan Britt M.D. Room: [facility] ENDOSCOPY ROOM 2 Note Status: Finalized Patient Profile: Refer to note in patient chart for documentation of history and physical. Procedure: Colonoscopy Indications: Screening for colorectal malignant neoplasm, Thisis the patient's first colonoscopy Referring MD: Arnel ArriagaNSolange Providers: Ethan Britt M.D. Impression: - Hemorrhoids found on perianal exam. - One 3 mm polyp in the ascending colon, removedwith a jumbo cold forceps. Resected and retrieved. - The examination was otherwise normal. Recommendation: - Discharge patient to home. - Resume previous diet. - Continue present medications. - Await pathology results. - [facility] - Return to primary care physician as [...] scope was passed under direct vision. TheColonoscope [id number] was introduced through the anus and advanced [...] 9:16 AM Procedure Code(s): --- Professional --- 28675, Colonoscopy, flexible; with biopsy, single or multiple --- Technical --- 03194, Colonoscopy, flexible; with biopsy, single or multiple Diagnosis Code(s): --- Professional --- D12.2, Benign neoplasm of ascending colon K64.9, Unspecified hemorrhoids Z12.11, Encounter for screening for malignant neoplasm of colon --- Technical --- D12.2, Benign neoplasm of ascending colon K64.9, Unspecified hemorrhoids Z12.11, Encounter for screening for malignant neoplasm of colon CPT copyright 2020 [employer]. All rights reserved. The codes documented in this report are preliminary and upon hide house supervisor reviewmay be revised to meet current compliance requirements. Recognized by the [employer] for promoting quality in endoscopy Ethan Britt MD ENDOSCOPY PROCEDURES Final Re sult from Last 3 Months or Most Recently Relevant to Health Maintenance Insurance IDPA Advance Directives For more information, please contact: [phone] * Full Code (Latest Code Status on File) Date Activated Date Inactivated Comments 05/24/2022 9:54 AM 05/24/2022 5:11 PM * Full Code Date Activated Date Inactivated Comments 10/10/2017 10:38 AM 10/13/2017 11:26 AM Care Teams Job Lithographer Relationship Specialty Start Date End Date Kendra Grimaldo NP [address] [address] PCP - General Family Medicine 05/24/22
--- OUTSIDE RECORDS SUMMARY | 2024-06-16 19:08 | XMS_ITS | Clinical Summary ---
Author Organization [facility] Address [address] [place] [address] Phone Care Team Providers Care Fusing Machine Operator Name Role Phone Re, Kendra Dykes APRN, HAND ROUTER OPERATOR Primary Care Provider Linda BYRNE MD, Nelda Unavailable [phone] Allergies No known active allergies Medications lisinopril-hydr oCHLOROthiazide (PRINZIDE, ZESTORETIC) 20-12.5 MG Tablet Take 1 Tab by mouth daily. Active traMADol (ULTRAM) 50 MG Tablet Take 1 Tab by mouth every 6 hours as needed. 30 Tab 8 Active Additional Information Patient not taking.Reported on 11/15/2021 calcium carbonate (TUMS) 500 MG Chewable Tablet Take 2 Tabs by mouth every 8 hours as needed. 30 Tab 8 Active Additional Information Patient not taking.Reported on 11/15/2021 ondansetron (ZOFRAN-ODT) 4 MG TABLET DISPERSIBLE Take 1 Tab by mouth every 6 hours as needed. 10 Tab 8 Active Additional Information Patient not taking.Reported on 11/15/2021 folic acid (FOLVITE) 1 MG Tablet Take 1 Tab by mouth daily. 30 Tab 8 Active Additional Information Patient not taking.Reported on 11/15/2021 Vitamin B-1 (THIAMINE) 100 MG Tablet Take 1 Tab by mouth daily. 30 Tab 8 Active Additional Information Patient not taking.Reported on 11/15/2021 DULoxetine (CYMBALTA) [address] Francesca 2 Active ibuprofen (MOTRIN) 600 MG Tablet TAKE 1 TABLET BY MOUTH 3 TIMES A DAY NEEDED 2 Active LORazepam (ATIVAN) 1 MG Tablet TAKE 1 TABLET BY MOUTH EVERY 8 HOURS FOR 10 DAYS NEEDED 2 Active mirtazapine (REMERON) 30 MG Tablet 2 Active emtricitabine-t enofovir (TRUVADA) 200-300 MG Tablet Take 1 Tablet by mouth daily. 2 Active HYDROcodone-shona taminophen (NORCO) 7.5-325 MG TabletIndicatio ns:Calculus of kidney Take 1 Tablet by mouth every 8 hours as needed for Moderate or more severe pain. This will help with the pain of stone passage 21 Tablet 2 Active naloxone HCl (Narcan) 4 MG/0.1ML Liquid 1 [place] by Nasal route as needed (opioid overdose). administer for symptoms of overdose (severe sleepiness, breathing problems, not responsive). Call 911. May use additional dose to repeat 1 spray intranasally in 2-3 minutes if needed. 2 Each 2 Active Active Problems Problem Noted Date Diagnosed Date Lip ulceration 06/10/2017 Syncope and collapse 06/08/2017 [place] (acute kidney injury) 06/08/2017 Closed fracture of one rib of right side 018 Alcohol intoxication 06/08/2017 Microcytic anemia 06/08/2017 Tobacco dependence syndrome 06/08/2017 Unintentional weight loss 06/08/2017 Hypertension 06/08/2017 Alcohol dependence 06/08/2017 Immunizations Immunization Administration Dates Next Due Influenza, Seasonal, Injectable, Undefined 11/05 Family History Medical History Relation Name Comments Hypertension Father Diabetes Mother Hypertension Mother Relation Name Status Comments Father Alive Mother Alive Social History Tobacco Use Types Packs/Day Years Used Date Smoking Tobacco: Some Days Cigarettes 0.2 25 Smokeless Tobacco: Never Tobacco Cessation:Ready to Q uit: No; Counseling Given: Yes Alcohol Use Standard Drinks/Week Comments Yes 36 (1 standard drink = 0.6 oz pu re alcohol) at least 12 pk/3 x/wk Sex and Gender Information Value Date Recorded Sex Assigned at Not on file Legal Sex Male 8:57 PM CDT Gender Identity Not on file Sexual Orientation Not on file Last Filed Vital Signs Vital Sign Reading Time Taken Comments Blood Pressure 136/80 11/15/2021 8:14 AM CDT Pulse 91 11/15/2021 8:14 AM CDT Temperature 36.5 C (97.7 F) 11/15/2021 8:14 AM CDT Respiratory Rate 20 11/15/2021 8:14 AM CDT Oxygen Saturation 98% 11/15/2021 8:14 AM CDT Inhaled Oxygen Concentration - - Weight 78 kg (172 lb) 11/15/2021 8:14 AM CDT Height 177.8 cm (5' 10 ) 11/15/2021 8:14 AM CDT Body Mass Index 24.68 11/15/2021 8:14 AM CDT Plan of Treatment Health Maintenance Due Date Last Done Comments TdaP Immunization 1975 Hepatitis B Immunization (1 of 3 - 19+ 3-dose series) 07/07/1994 Colonoscopy 07/07/2020 Colorectal Cancer Screening 07/07/2020 Influenza Immunization (#1) 2023 11/05/2020 SARS-COV-2 Immunization ( - season) 2023 Respiratory Syncytial Virus (RSV) Immunization (Adult) (1 - 1-dose 75+ series) 07/07/2050 Hepatitis C Virus (HCV) Screening Completed 018 Meningococcal Immunization (ACWY) Aged Out No longer eligible based on patient's age to complete this topic Pneumococcal Immunization Combined Aged Out No longer eligible based on patient's age to complete this topic Rotavirus Immunization Aged Out No lo nger eligible based on patient's age to complete this topic Procedures Procedure Name Priority Date/Time Associated Diagnosis Comments HEPATITIS PANEL ACUTE (AHP) Add on 06/08/2017 5:29 PM CDT from Last 3 Months or Most Recently Relevant to Health Maintenance Results * Hepatitis Panel, Acute (06/08/2017 5:29 PM CDT) HEPATITIS A IGM ANTIBODY NON DETECTED NON DETECTED 06/09/2017 3:00 PM CDT [facility] Comment: IGM Antibodies to HAV not detected. Does not exclude early acute or recovered HAV infection. HEP B CORE AB (IGM) NON DETECTED NON DETECTED 06/09/2017 3:00 PM CDT [facility] Comment: IGM anti-HBC not detected. Does not exclude the possibility of exposure to or infection with HBV. HEPATITIS B SURFACE ANTIGEN NON DETECTED NON DETECTED 06/09/2017 3:00 PM CDT [facility] Comment: A nonreactive test result does not exclude the possibility of exposure to or infection with Hepatitis B virus. A nonreactive test result in individuals with prior exposure to hepatitis B may be due to antigen levels below the detection limit of this assay or lack of antigen reactivity to the antibodies in this assay. hepatitis C antibody 0.08 <1 S/CO 06/09/2017 3:00 PM CDT [facility] Comment: Signal/Cutoff ratio < 0.79 is Nondetected Signal/Cutoff ratio 0.80-0.99 is Grayzone Signal/Cutoff ratio > 0.99 is Detected Supplemental assays are recommended if signal/cutoff ratio is >/=1.00. Signal/cutoff ratio result >/= 5.00 is 97% predictive of positivity for recombinant immunoblot assay (RIBA) and will be reported to the [place] Department of Public Health as required. Blood specimen (specimen) Butterfly Puncture / Unknown 06/08/2017 5:29 PM CDT 06/08/2017 5:36 PM CDT Supriya Morgan APRN, [facility]AT[facility] ORDERABL ES Final Result [facility] [address] [place] [address], from Last 3 Months or Most Recently Relevant to Health Maintenance Insurance MEDICAID [employer]NA [facility] * Guarantor: [facility] Account Type Relation to Patient Date of Phone Billing Address Institutional Other [address] [place] [address] Advance Directives * Full Code (Latest Code Status on File) Date Activated Date Inactivated Comments 06/08/2017 3:37 PM 06/11/2017 4:07 PM CPR-Full Jhoan atment: FULL ARREST: Attempt Resuscitation/CPR wit intubation and mechanical ventilation. PRE-ARREST: Use entire range of life support measures to stabilize the patient. Care Teams Fusing Machine Operator Relationship Specialty Start Date End Date Kendra Grimaldo APRN, HAND ROUTER OPERATOR [address] [place] [address] PCP - General Advanced Practice Nurse 10/21/21 Nelda Mckeon III, MD [address] [place] [address] Consulting Physician Urology 11/04/21
[2024-06-16 19:10] VITALS: BP 162/92; PULSE 92; RESP 20; TEMP 36.9; O2SAT 100
--- NOTE | 2024-06-16 19:50 | ED_ITS ---
HPI - Eye Problem General Chief complaint: Eye Problems Stated complaint: woodchip in left eye Time Seen by Provider: 06/16/24 19:10 Source: patient and RN notes reviewed Mode of arrival: ambulatory Limitations: no limitations History of Present Illness HPI Narrative: 48-year-old male presents [facility] complaining of wood chip stuck in his left eye. Patient said approximately 2 hours ago he was using a chainsaw when when the chainsaw kicked back and shot a wood chip into the patient's left eye. Patient tried irrigating his eye at home and could not get the which about of his eye. He states he can see normally out of his eye however says it is painful in his eyes very watery. Patient is unsure if he has multiple wood chips in his eye. Patient states that he did not injure his right eye. Patient denies any vision changes, dizziness, headaches, or any other injuries. Related Data Home Medications ?Medication ?Instructions ?Recorded ?Confirmed ?Last Taken ?Type duloxetine 60 mg capsule,delayed mg PO 06/16/24 Unknown History release emtricitabine-tenofovir (TDF) .ROUTE 06/16/24 Unknown History Allergies Allergy/AdvReac Type Severity Reaction Status Date / Time No Known Allergies Allergy Verified 06/16/24 19:16 Review of Systems Review of Systems: CONSTITUTIONAL: Denies fever, chills, or sweats. EYES: Denies visual changes, redness, or discharge. Positive for eye pain and foreign body in eye. ENT: Denies rhinorrhea, congestion, sore throat, or otalgia. CARDIOVASCULAR: Denies chest pain, palpitations, or edema. RESPIRATORY: Denies cough or dyspnea. GASTROINTESTINAL: Denies abdominal pain, nausea, vomiting, or diarrhea. GENITOURINARY: Denies dysuria or hematuria. SKIN: Denies rash or itching. MUSCULOSKELETAL: Denies back pain, joint pain, or myalgia. NEUROLOGIC: Denies headache, numbness, or weakness. PSYCHIATRIC: Denies anxiety or depression. All other systems reviewed are negative, except as documented in HPI. PMFSH Comments At the time of my signature, I reviewed and agree with the nursing past medical, surgical, social, and family history. There is no relevant family history pertinent to the patient complaint. Exam Narrative: GENERAL: This is a well-nourished, well-developed adult, in no apparent d istress. They are non ill-appearing, nontoxic appearing. HEAD: normocephalic, atraumatic. EYES: Sclera clear/white. Conjunctiva normal. Vision is grossly intact. Extraocular movements intact. Pupils PERRLA. Foreign body present in left eye, appears to be a wood chip below the cornea above the iris of the left eye. No other foreign bodies are identified. No hyphema is present. No erythema or swelling. Left eye is teary without discharge. Upper and lower eyelids are normal bilaterally. EARS: External ears normal, Hearing grossly intact. NOSE: External nose normal THROAT: Mucous membranes moist NECK: Neck supple, non-tender without lymphadenopathy, masses or thyromegaly. CARDIOVASCULAR: Regular rate and rhythm without murmurs, gallops, or rubs. RESPIRATORY: Respiratory rate normal, respiratory effort nonlabored, no respiratory distress SKIN: warm, Dry, intact with no suspicious lesions or rash, good texture and turgor. NEURO: awake, alert, and oriented to person, place and time. There were no obvious focal neurologic abnormalities. EXTREMITIES: No joint tenderness, effusion, or edema noted. Course Course Emergency Course: Portions of this record may have been created with voice recognition software Level of Care: Express Care Visit Vital Signs Vital signs: Vital Signs Temperature 98.4 F 06/16/24 19:10 Pulse Rate 92 06/16/24 19:10 Respiratory Rate 06/16/24 19:10 Blood Pressure 162/92 H 06/16/24 19:10 Pulse Oximetry 100 06/16/24 19:10 Oxygen Delivery Room Air 06/16/24 19:10 Temperature 98.4 F 06/16/24 19:10 Pulse Rate 92 06/16/24 19:10 Respiratory Rate 06/16/24 19:10 Blood Pressure 162/92 H 06/16/24 19:10 Pulse Oximetry 100 06/16/24 19:10 Oxygen Delivery Room Air 06/16/24 19:10 Reviewed Transfer Transfered to: [facility] Hospital Transportation: Other (Private vehicle) Transfer rationale: Penetrating eye injury, higher level care Accepting physician: Dr. Moe MDM - Eye Problem MDM Narrative Medical decision making narrative: Given patient's injury which appears to be deeper than superficial and sitting right above his iris. Foreign body does not appear to protrude out of the patient's eye. Patient's visual acuity is 20/20 with his glasses. Given [facility] anism of injury is there is concern that the patient has a penetrating eye trauma. Spoke with Dr. Torres at [facility] who agrees that the patient should go over to a [place] facility that has ophthalmology on staff for further evaluation and management of his eye injury. Patient is agreeable to go over to [facility] ER. Called report over to [facility] and spoke with Dr. Moe who is aware of this patient accepts patient for transfer. Patient has a a friend to take him over to the hospital via private vehicle. Patient advised to go immediately to the emergency department and remain NPO. 2020 right before given report to Dr. Moe, patient stated the which is fell out of his eye. Second exam revealed a foreign body fell out of the patient's eye. Patient says pain has subsided and his vision is unchanged. Discussed this with Dr. Moe who believes it is best that the still be evaluated by ophthalmology for possible open globe injury. Patient is agreeable with this plan. Differential Diagnosis Differential diagnosis: Likely corneal abrasion, ruptured globe and other (Penetrating eye trauma) Critical Care Time Critical Care Time Critical Care Time: No Discharge Plan Discharge Clinical Impression: Eye injury, penetrating Qualifiers: Encounter type: initial encounter Laterality: left Qualified Code(s): S05.62XA - Penetrating wound without foreign body of left eyeball, initial encounter Patient Disposition: Acute Care Hospital Condition: Stable Patient Language: [place] Prescriptions: No Action duloxetine 60 mg capsule,delayed release(DR/EC) PO emtricitabine-tenofovir (TDF) [[place]] .ROUTE Follow-up/Referrals: Re,YADI Gardner [Primary Care Provider] - Time of Disposition: 20:38
--- NOTE | 2024-06-16 20:12 | PC.NURSE ---
2012 continue to be on hold with [facility] transfer center. Pt aware.
--- NOTE | 2024-06-16 20:17 | PC.NURSE ---
2015 Pt called provider Sukhwinder Lagos to room states wood anabel is out of eye. PRovider to room for exam.
== END 2024-06-16 20:37 | disposition short-term general hospital (02) ==
PROVIDERS: PCP Nurse Practitioner Family
DX: S05.62XA Penetrating wound without foreign body of left eyeball, initial encounter (principal); W20.8XXA Other cause of strike by thrown, projected or falling object, initial encounter
CPT/HCPCS: 99202; A9270; G0463